=== PATIENT | male | born 1975 | race Caucasian/White ===

== ENCOUNTER 2022-08-31 10:25 | Outpatient (CLI) | payer BC | END 2022-08-31 23:59 | disposition home or self-care (01) | LOC: RAD 10:25 | PROVIDERS: ATTEND Internal Medicine Cardiovascular Disease | DX: I08.8 Other rheumatic multiple valve diseases (principal); R06.02 Shortness of breath; I50.22 Chronic systolic (congestive) heart failure | CPT/HCPCS: 93306 ==